=== PATIENT | male | born 1980 | race Caucasian/White ===

== ENCOUNTER 2025-02-28 10:41 | Emergency (ER) | payer OTHER, SELFPAY ==
--- NOTE | ~2025-02-28 | CT_ITS ---
Noncontrast CT scan of the right shoulder CLINICAL HISTORY: Sclerotic lesion TECHNIQUE: Axial noncontrast imaging of the right shoulder was performed, with sagittal and coronal r eformatted images constructed. Dose reduction technique was used on this scan by utilizing automated exposure control and iterative reconstruction technique. The dose-length product (DLP) was 429.32 mGy -cm. Comparison: Radiographs dated 02/28/2025 FINDINGS: No acute fracture or dislocation. No sclerotic lesion. The atherosclerosis unrelated is rel ated to large inferomedial humeral head osteophyte and its associated radiologic projection on plain radiography. There is joint space narrowing of the glenohumeral joint with mild spurring at the gleno id margins as well. There are loose bodies in the subscapularis recess, measuring up to 1.5 cm in madhavi meter. AC joint intact with minimal degenerative change. No significant joint effusion evident. Visualized m usculature appears intact. No soft tissue mass or fluid collection seen otherwise. IMPRESSION: Advanced glenohumeral joint osteoarthritis, with prominent inferomedial humeral head osteophyte which accounts for the appearance of a sclerotic lesion on plain radiography. No actual sclerotic lesion s een otherwise. Loose bodies in the subscapularis recess of the glenohumeral joint, as detailed above. Reviewed, dictated and finalized at location M. IMPRESSION: Advanced glenohumeral joint osteoarthritis, with prominent inferomedial humeral head osteophyte which accounts for the appearance of a sclerotic lesion on meredith in radiography. No actual sclerotic lesion seen otherwise. Loose bodies in the subscapularis recess of the glenohumeral joint, as detailed above.
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
[2025-02-28 10:43] VITALS: BP 146/93; PULSE 99; RESP 15; TEMP 36.8; O2SAT 97
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
== END 2025-02-28 14:06 | disposition home or self-care (01) ==
PROVIDERS: Emergency Provider Emergency Medicine
DX: S49.91XA Unspecified injury of right shoulder and upper arm, initial encounter (principal); S29.9XXA Unspecified injury of thorax, initial encounter; M19.011 Primary osteoarthritis, right shoulder; M25.711 Osteophyte, right shoulder; W20.8XXA Other cause of strike by thrown, projected or falling object, initial encounter
CPT/HCPCS: 70450; 72125; 73030; 73200; 99284